=== PATIENT | female | born 1990 | race Caucasian/White ===

== ENCOUNTER 2017-09-28 20:10 | Emergency (ER) | payer MEDICAID, OTHER ==
[~2017-09-28 20:10] MED LIST: IRON-23 PO; SERT25TA PO
== END 2017-09-28 22:21 | disposition left against medical advice (07) ==
LOC: EDH 20:10
DX: Z53.21 Procedure and treatment not carried out due to patient leaving prior to being seen by health care provider (principal)

== ENCOUNTER 2017-09-28 20:12 | Emergency (ER) | payer MEDICAID, OTHER | END 2017-09-28 21:10 | disposition home or self-care (01) | LOC: EDH 20:12 | DX: G51.0 Bell's palsy (principal); Z88.0 Allergy status to penicillin; Z88.5 Allergy status to narcotic agent; Z87.891 Personal history of nicotine dependence | CPT/HCPCS: 81025 ==

== ENCOUNTER 2018-10-05 10:23 | Emergency (ER) | payer SELFPAY ==
[2018-10-05 11:25] LABS: BASOPHILS % (AUTO) 0.7 % (0.0-5.0); EOSINOPHILS % (AUTO) 1.3 % (0.0-8.0); HEMATOCRIT 40.3 % (36-48); LYMPHOCYTES % (AUTO) 30.5 % (21.0-51.0); MEAN CORPUSCULAR HEMOGLOBIN 31.3 pg (27.0-33.0); MEAN CORPUSCULAR HGB CONC 34.3 g/dL (32.0-36.0); MEAN CORPUSCULAR VOLUME 91.1 fL (79-99); MONOCYTES % (AUTO) 10.3 % (3.0-13.0); NEUTROPHILS % (AUTO) 57.2 % (40.0-77.0); PLATELET COUNT (AUTO) 247 K/uL (130-400); RED BLOOD CELL COUNT(AUTO) 4.42 MIL/uL (4.00-5.50); RED CELL DISTRIBUTION WIDTH 13.3 % (11.0-15.5); WHITE BLOOD COUNT (AUTO) 5.1 K/uL (4.8-10.8)
== END 2018-10-05 12:38 | disposition home or self-care (01) ==
LOC: EDH 10:23
DX: N92.0 Excessive and frequent menstruation with regular cycle (principal); Z88.1 Allergy status to other antibiotic agents; Z88.0 Allergy status to penicillin; Z90.49 Acquired absence of other specified parts of digestive tract
CPT/HCPCS: 36415; 84702; 85025; 86900; 86901

== ENCOUNTER 2019-01-29 17:09 | Emergency (ER) | payer OTHER ==
[2019-01-29 18:03] LABS: BASOPHILS % (AUTO) 0.6 % (0.0-5.0); EOSINOPHILS % (AUTO) 1.3 % (0.0-8.0); LYMPHOCYTES % (AUTO) 23.2 % (21.0-51.0); MEAN CORPUSCULAR HEMOGLOBIN 32.6 pg (27.0-33.0); MEAN CORPUSCULAR HGB CONC 34.6 g/dL (32.0-36.0); MEAN CORPUSCULAR VOLUME 94.3 fL (79-99); MONOCYTES % (AUTO) 9.1 % (3.0-13.0); NEUTROPHILS % (AUTO) 65.8 % (40.0-77.0); PLATELET COUNT (AUTO) 235 K/uL (130-400); RED BLOOD CELL COUNT(AUTO) 4.13 MIL/uL (4.00-5.50); RED CELL DISTRIBUTION WIDTH 12.7 % (11.0-15.5)
[2019-01-29 18:13] LABS: CREATININE 0.9 mg/dL (0.5-1.5); POTASSIUM 4.2 mmol/L (3.5-5.1)
[2019-01-29 18:22] LABS: BILIRUBIN,URINE Negative (NEGATIVE); COLOR,URINE Yellow (YELLOW); GLUCOSE, URINE (UA) Negative (NEGATIVE); KETONES,URINE Negative (NEGATIVE); LEUKOCYTE ESTERASE ,URINE Negative (NEGATIVE); NITRATE,URINE Negative (NEGATIVE); OCCULT BLOOD,URINE Negative (NEGATIVE); PH,URINE 7.5 (5.0-8.0); PROTEIN,URINE Negative (NEGATIVE)
[2019-01-29 18:24] LABS: APPEARANCE,URINE SLIGHTLY CLOUDY (CLEAR)
[2019-01-29 18:47] LABS: AMORPHOUS SEDIMENT,UR Rare /LPF (None Seen); BACTERIA,URINE Rare /HPF (None Seen); RBC,URINE None Seen /HPF (0-1); SQUAMOUS EPITHELIAL CELL,UR 0-2 /HPF (0-2); WBC,URINE 0-1 /HPF (0-1)
== END 2019-01-29 20:35 | disposition home or self-care (01) ==
LOC: EDH 17:09
DX: O20.9 Hemorrhage in early pregnancy, unspecified (principal); O99.331 Smoking (tobacco) complicating pregnancy, first trimester; R10.2 Pelvic and perineal pain; Z3A.01 Less than 8 weeks gestation of pregnancy; Z88.0 Allergy status to penicillin; Z88.1 Allergy status to other antibiotic agents; Z88.6 Allergy status to analgesic agent; Z90.49 Acquired absence of other specified parts of digestive tract
CPT/HCPCS: 36415; 76801; 80048; 81001; 84702; 85025; 86900; 86901

== ENCOUNTER 2019-09-21 18:07 | Observation (INO) | payer MEDICAID ==
[~2019-09-21] VITALS: Ht 152.4 cm; Wt 50.3 kg
[2019-09-21] MEDS ORDERED: SODIUM CHLORIDE 0.9% 1000ML 1,000 ML IV ONE (18:49)
[2019-09-21 19:26] LABS: BASOPHILS % (AUTO) 0.7 % (0.0-5.0); EOSINOPHILS % (AUTO) 2.2 % (0.0-8.0); HEMATOCRIT 32.5 % (36-48); LYMPHOCYTES % (AUTO) 25.3 % (21.0-51.0); MEAN CORPUSCULAR HEMOGLOBIN 31.8 pg (27.0-33.0); MEAN CORPUSCULAR HGB CONC 33.5 g/dL (32.0-36.0); MEAN CORPUSCULAR VOLUME 94.8 fL (79-99); MONOCYTES % (AUTO) 8.5 % (3.0-13.0); NEUTROPHILS % (AUTO) 61.8 % (40.0-77.0); PLATELET COUNT (AUTO) 469 K/uL (130-400); RED BLOOD CELL COUNT(AUTO) 3.43 MIL/uL (4.00-5.50); RED CELL DISTRIBUTION WIDTH 13.2 % (11.0-15.5); WHITE BLOOD COUNT (AUTO) 6.7 K/uL (4.8-10.8)
[2019-09-21 19:40] LABS: CREATININE 0.8 mg/dL (0.5-1.5); POTASSIUM 3.8 mmol/L (3.5-5.1)
[2019-09-21 19:46] LABS: INR 0.91 (0.85-1.15); PARTIAL THROMBOPLASTIN TIME 26.2 SEC (26.3-35.5); PROTHROMBIN TIME 9.6 SEC (9.6-11.6)
[2019-09-21 19:47] LABS: ALBUMIN 2.7 g/dL (3.5-5.0); BILIRUBIN,TOTAL 0.4 mg/dL (0.2-1.0)
[2019-09-21] MEDS ORDERED: LACTATED RINGERS 1000ML 1,000 ML IV ONE (21:00)
[2019-09-21 21:40] VITALS: BP 129/77
--- NOTE | 2019-09-21 21:40 | NUR ---
STATUS/ HX DIAGNOSED W/ BELLS PALSY 2018 Addendum: 09/22/19 at 0101 by TRINH CHANDLER LVN Amended: Links added.
--- NOTE | 2019-09-21 21:40 | NUR ---
vaginal bleeding scant, denies any cramping or clots Addendum: 09/22/19 at 0250 by TRINH CHANDLER LVN Amended: Links added.
[2019-09-21] MEDS ORDERED: LACTATED RINGERS 1000ML 1,000 ML IV SCH (21:44)
[2019-09-21 23:40] VITALS: BP 118/82
[2019-09-22 03:45] VITALS: BP 119/72
[2019-09-22] MEDS ORDERED: LACTATED RINGERS 1000ML 1,000 ML IV SCH (05:00)
[2019-09-22] MEDS ORDERED: MIDAZOLAM HCL 1 MG/ML 2ML VIAL ONE (07:15)
[2019-09-22] MEDS ORDERED: PROPOFOL 10 MG/ML 20ML VIAL IV ONE (07:15)
[2019-09-22] MEDS ORDERED: LIDOCAINE PF 2% 5ML ABBOJECT ONE (07:15)
[2019-09-22] MEDS ORDERED: DEXAMETHASONE SOD PHOSPHATE 10MG/ML 1ML VIAL ONE (07:15)
[2019-09-22] MEDS ORDERED: ONDANSETRON HCL 4 MG/2 ML VIAL ONE (07:15)
--- NOTE | 2019-09-22 07:15 | NUR ---
PATIENT TAKEN TO PROCEDURE AT THIS TIME.
[2019-09-22] MEDS ORDERED: FENTANYL CITRATE PF 50 MCG/1 ML 2ML VIAL ONE (07:16)
[2019-09-22] MEDS ORDERED: SUCCINYLCHOLINE 200MG/10ML SYR ONE (07:26)
[2019-09-22] MEDS ORDERED: OXYTOCIN 10 USP UNITS/ML ONE ×3 (07:36→07:45)
[2019-09-22] MEDS ORDERED: MISOPROSTOL 200 MCG TABLET ONE (08:22)
[2019-09-22] MEDS ORDERED: MISOPROSTOL 200 MCG TABLET VG SCH (08:30)
[2019-09-22] MEDS ORDERED: METHYLERGONOVINE MALEATE 0.2 MG/1 ML ML IM SCH (08:30)
--- NOTE | 2019-09-22 09:50 | NUR ---
PATIENT ARRIVED BACK TO ROOM AT THIS TIME.
[2019-09-22 09:53] VITALS: BP 126/76
--- NOTE | 2019-09-22 10:00 | NUR ---
ASSISTED PATIENT OOB WITH STERLING BOTELLO CNA TO RESTROOM. NO DIZZINESS REPORTED. PATIENT WAS ABLE TO VOID 400ML. NO DIFFICULTY AMBULATING. CALL LIGHT LEFT IN REACH.
[2019-09-22 10:07] VITALS: BP 142/89
[2019-09-22 10:22] VITALS: BP 153/89
[2019-09-22 10:37] VITALS: BP 148/89
[2019-09-22 11:07] VITALS: BP 145/94
--- NOTE | 2019-09-22 11:45 | NUR ---
PATIENT REPORTS BEING ABLE TO TOLERATE JELLO AND WATER. NO C/O NAUSEA.
--- NOTE | 2019-09-22 13:00 | NUR ---
DISCHARGE INSTRUCTIONS READ AND EXPLAINED TO PATIENT. QUESTIONS INVITED AND ANSWERED. PATIENT VOICED UNDERSTANDING ON ALL DISCHARGE INSTRUCTIONS. PRESCRIPTION FOR MOTRIN 600MG AND FERROUS SULFATE HANDED TO PATIENT.
--- NOTE | 2019-09-22 13:15 | NUR ---
PATIENT LEFT UNIT VIA WHEELCHAIR WITH BELONGINGS IN HAND. PERSONAL VEHICLE USED FOR TRANSPORTATION. NO COMPLAINTS OR CONCERNS ADDRESSED FROM PATIENT ON DISCHARGE.
== END 2019-09-22 13:15 | disposition home or self-care (01) ==
LOC: EDH 18:07 → EDHIP 18:08 → INTOOBSV 18:08 → OBSVTOIN 18:08 → WSH 22:00
PROVIDERS: ADMIT Obstetrics & Gynecology; ATTEND Obstetrics & Gynecology
DX: O72.2 Delayed and secondary postpartum hemorrhage (principal); D64.9 Anemia, unspecified; Z90.49 Acquired absence of other specified parts of digestive tract; Z88.5 Allergy status to narcotic agent; Z88.0 Allergy status to penicillin; Z88.8 Allergy status to other drugs, medicaments and biological substances; Z88.6 Allergy status to analgesic agent; Z72.0 Tobacco use
CPT/HCPCS: 36415; 58120; 76856; 80053; 85025; 85610; 85730; 86850; 86900; 86901; 87641; 88305; 99284; A4315; A4556; A4649; A7002; G0378 ×7; J0330; J1100; J2001; J2250; J2405; J2590 ×3; J2704; J3010; J7030; J7120